=== PATIENT | male | born 1990 | race Caucasian/White ===

== ENCOUNTER 2018-02-27 09:53 | Outpatient (REF) | payer BC, SELFPAY | END 2018-02-27 10:13 | LOC: NCHCN 09:53 | PROVIDERS: PCP Internal Medicine; Visit Provider Family Medicine | DX: Z20.2 Contact with and (suspected) exposure to infections with a predominantly sexual mode of transmission (principal); Z53.8 Procedure and treatment not carried out for other reasons | CPT/HCPCS: 87491; 87591 ==

== ENCOUNTER 2018-03-02 12:23 | Outpatient (REF) | payer BC, SELFPAY ==
[2018-03-06 16:26] LABS: Chlamydia Result Negative; GC Result Negative; Specimen Description URINE
== END 2018-03-02 12:43 ==
LOC: NCHCN 12:23
PROVIDERS: PCP Internal Medicine; Visit Provider Family Medicine
DX: Z20.2 Contact with and (suspected) exposure to infections with a predominantly sexual mode of transmission (principal); Z11.3 Encounter for screening for infections with a predominantly sexual mode of transmission
CPT/HCPCS: 87491; 87591

== ENCOUNTER 2023-12-19 13:46 | Outpatient (REF) | payer OTHER, SELFPAY ==
--- OUTSIDE RECORDS SUMMARY | 2023-12-19 13:51 | XMS_ITS | Data Portability ---
Author Organization [facility] [place] [address] Care Team Providers Care Radio Electronics Officer Name Role Phone VINOD GRIMES Dentist ANNIE BENSON Fire Crew Specialist Assessment Encounter Date Assessment Date Assessment LastModified by Organization Details LastModified Time 07/08/2023 07/08/2023 32 y/o male here to re-establish care [email or web address] Not available 07/08/2023 07:43:18 Plan of Treatment Reminders Order Date Submit Date Provider Last Modified By Organization Details Last Modified Time Details Appointments None record ed. Lab None record ed. Referral None record ed. Procedures None record ed. Surgeries None record ed. Imaging None record ed. Medication Orders None record ed. Patient TargetsNo targets recorded. Patient Instructions Encounter Date Encounter Id Patient Instructions Last Modified By Organization Details Last Modified Time 07/08/2023 [id number] Keep going with all the things we talked about for blood pressure. Exercise Cut down on alcohol Cut out tobacco Lower salt diet Lots of fruits and veggies Check at home. Normal is less than 120/80 - we will see you back in a couple of months to check. Not available 07/08/2023 08:22:29 Reason for Referral None Reported. Problems Name Problem SNOMED Code Status Onset Date Resolution Date Notes Provider Name and Address Organization Details Recorded Time Sleep walking disorder 85425217 Completed 07/08/2023 LENNY turner [facility] 07:43:41 Current drinker 866522 Active LENNY turner [facility] 07:43:59 Problem Notes None recorded. Medical Equipment None Reported. Allergies No known drug allergies Medications Not known to be on any medication Vitals Date Recorded Body height Body mass index (BMI) Body weight Body temperature Oxygen saturation Oxygen saturation in Arterial blood by Pulse oximetry Heart rate Systolic blood pressure Diastolic blood pressure Provider Name and Address Organization Details Last Updated DateTime 173.99 cm 24.1 kg/m2 95203.6 5 g 98.1 [degF] 98 % 98 % 77 /min 130 mm[Hg] 90 mm[Hg] JONA SCHREIBER RN [facility] 08:08:08 Date Recorded Systolic blood pressure Diastolic blood pressure Provider Name and Address Organization Details Last Updated DateTime 07/08/2023 130 mm[Hg] 100 mm[Hg] LENNY JIN [facility] 07/08/2023 08:38:40 Social History Question Answer Notes LastModified by Organizat ion Details LastModified Time Tobacco Smoking Status Never Smoker JONA SCHREIBER RN [facility], [facility] 07/07/2023 07:33:12 How Much Tobacco Do You Chew? 1/day But Only On Occasion , Not Daily, Not Even Weekly. Information not available 07/07/2023 Do You Or Have You Ever Used E-cigarettes Or Vape? Never Used Electronic Cigarettes [email or web address] Information not available 07/07/2023 Would You Say That, In General, Your Health Is Very Good [email or web address] Information not available 07/07/2023 How Often Does Anyone, Including Family, Physically Hurt You? Never [email or web address] Information not available 07/07/2023 How Often Does Anyone, Including Family, Insult Or Talk Down To You? Never [email or web address] Information no t available 07/07/2023 How Often Does Anyone, Including Family, Threaten You With Harm? Never [email or web address] Information not available 07/07/2023 How Often Does Anyone, Including Family, Scream Or Curse At You? Never Information not available 07/07/2023 Within The Past 12 Months, You Worried That Your Food Would Run Out Before You Got Money To Buy More. Never True [email or web address] Information n ot available 07/07/2023 Within The Past 12 Months, The Food You Bought Just Didn't Last And You Didn't Have Money To Get More. Never True [email or web address] Information n ot available 07/07/2023 How Hard Is It For You To Pay For The Very Basics Like Food, Housing, Medical Care, And Heating? Would You Say It Is: Not Hard At All Information not available 07/07/2023 In The Past 12 Months, Has Lack Of Reliable Transportation Kept You From Medical Appointments, Meetings, Work Or From Getting Things Needed For Daily Living? No [email or web address] Information not available 07/07/2023 What Is Your Housing Situation Today? I Have Housing. [email or web address] Information not available 07/07/2023 How Often In The Past Year Have You Used Marijuana (including Smoking, Vaping, Dabbing, Or Edibles)? Monthly Or Less [email or web address] Information not available 07/07/2023 How Often In The Past Year Have You Used Prescription Medications That Were Not Prescribed To You? Never [email or web address] Information n ot available 07/07/2023 How Often In The Past Year Have You Taken Your Own Prescription Medication More Than The Way It Was Prescribed Or For Different Reasons Than Its Intended Purpose? Never Information no t available 07/07/2023 How Often In The Past Year Have You Used Other Drugs (for Example, Heroin, Cocaine, Meth, Salvia, Inhalants)? Never [email or web address] Information not available 07/07/2023 Have You Ever Used IV Drugs? No [email or web address] Information not available 07/07/2023 Date Of Most Recent SBINS 07/08/2023 [email or web address] Information not available 07/07/2023 What Was The Date Of Your Most Recent Tobacco Screening? 07/08/2023 [email or web address] Information not available 07/07/2023 Do You Or Have You Ever Used Smokeless Tobacco? Currently Chews Tobacco Information not available 07/07/2023 Has Tobacco Cessation Counseling Been Provided? Yes [email or web address] Information not available 07/07/2023 On What Date Was Tobacco Cessation Counseling Provided? 07/08/2023 [email or web address] Information not available 07/07/2023 Do You Or Have You Ever Used Any Other Forms Of Tobacco Or Nicotine? Yes [email or web address] Information not available 07/07/2023 How Many Years Have You Used Smokeless Tobacco? 10 [email or web address] Information n ot available 07/08/2023 Sex: Male Functional Status None recorded. Mental Status None recorded. Family History Nothing Reported Notes:Mother - HLD, HTN. Fat her - HTN. MGM - Colon CA. GFs of CVAs. PGM - Alcoholism Medical History No medical history recorded. Immunizations Vaccine Type Date Status Provider Name and Address Organization Details Recorded Time SARS-COV-2 (COVID-19) vaccine, UNSPECIFIED 07/07/2020 completed UNIQUE AMBRIZ, [facility] 07/07/2023 07:51:51 Tdap 02/17/2018 completed UNIQUE AMBRIZ, [facility] 07/07/2023 07:52:13 Td(adult) unspecified formulation 11/03/2006 completed UNIQUE AMBRIZ, [facility] 07/07/2023 07:52:30 Past Encounters Encounter ID Performer Location Encounter Start Date Encounter Closed Date Diagnosis/Indication Diagnosis SNOMED-CT Code Diagnosis ICD10 Code [id number] [address] [address] 07/08/2023 07:48:57 07/08/2023 08:34:36 Elevated blood-pressure reading without diagnosis of hypertension 009134513 R03.0 Adult [facility] th examination 748562461 Z00.00 Health Concerns Section Related Observation LastModified by Organization Detai ls LastModified Time None Recorded Concern Status LastModified by Organization Details LastModified Time None Recorded Advance Directives Directive None Recorded Payers Encounter Date Sequence Insurance Name Policy Number Policy [place] Covered Member ID [place] Member ID Guarantor Name 07/08/2023 1 [employer] AT [employer]ian [place] [id number] Mian Ty Notes Date Note Type Note Provider Name and Address Organization Details Recorded Time 07/08/2023 text/html HPI Notes: Mian is here to re-establish care. Last seen in this office 2017. Concerns today: Elevated blood pressure - went to dentist and BP was high 135/97. Has made some changes since then. He does have a home cuff - is usually 130/90 consistently. He did have some stress related to work. He is drinking less, cut out chewing tobacco, and cannabis, ETOH use 4x weekly, 3-4 drinks, would have a beer or whiskey at night most days, more on weekends. Tobacco - chews very occasionally, has now cut out. Occasional cannabis use No intentional exercise. Diet - he thinks pretty good. Eats out once a week. Cutting down on meat. 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 No other concerns today. ROS: No chest pain, palpitations, ankle swelling, urinary or bowel concerns, skin concerns. LENNY turner, [place] - [facility], [facility]. 07/08/2023 08:42:58
[2023-12-21 13:06] LABS: Container Type 50 mL Conical; Double Forms 4.5 %; Germ Cells/mL 0.43 x10(6) (<4.00); Head Shape Abnormal 21.5 %; Head Size Abnormal 0.5 %; Midpiece Defect 15.5 %; Motile/Ejaculate 34.8 x10(6) (>=9.0); Motile/mL 13.9 x10(6) (>=6.0); Motility 48 % (>=40); Semen Volume 2.5 mL (>=1.5); Sperm/mL 28.9 x10(6) (>=15.0); Study Type Semen
== END 2023-12-19 13:47 | disposition home or self-care (01) ==
LOC: NCHCN 13:46
PROVIDERS: Visit Provider Family Medicine
DX: Z30.8 Encounter for other contraceptive management (principal)
CPT/HCPCS: 89240; 89310

== ENCOUNTER 2024-02-02 03:11 | Outpatient (CLI) | payer OTHER, SELFPAY ==
[2024-02-03 09:36] LABS: Syphilis Serology (RPR) Negative (Negative)
[2024-02-03 10:07] LABS: Hepatitis B Surface Ag Negative (Negative)
[2024-02-03 10:35] LABS: Hepatitis C Ab w Rflx HCV PCR Negative (Negative)
[2024-02-03 10:39] LABS: HIV-1/2 Ag & Ab Screen Negative (Negative)
[2024-02-03 12:40] LABS: Chlamydia Result Negative (Negative); GC Result Negative (Negative)
== END 2024-02-02 03:12 | disposition home or self-care (01) ==
LOC: LBO 03:11
PROVIDERS: Visit Provider Nurse Practitioner Family
DX: Z11.59 Encounter for screening for other viral diseases (principal); Z11.4 Encounter for screening for human immunodeficiency virus [HIV]; Z11.3 Encounter for screening for infections with a predominantly sexual mode of transmission
CPT/HCPCS: 36415; 86803; 87340; 87389; 87491; 87591; 86592

== ENCOUNTER 2024-12-21 13:53 | Outpatient (REF) | payer OTHER, SELFPAY ==
[2024-12-21 21:06] LABS: HCT 44.9 % (40.0-50.0); HGB 15.6 g/dL (13.5-17.5); MCH 33.8 pg (27.0-33.0); MCHC 34.7 % (32.0-36.0); MCV 97 fL (80-95); MPV 8.9 fL (8.0-11.0); Platelet Count 249 10^3/uL (130-400); RBC 4.62 10^6/uL (4.36-5.78); RDW 11.6 % (11.8-14.1); RDW-SD 41.8 fL; WBC 5.53 10^3/uL (4.4-10.8)
[2024-12-21 21:35] LABS: ALT 79 U/L (16-63); AST 48 U/L (15-37); Albumin 4.4 g/dL (3.4-5.0); Alkaline Phosphatase 82 U/L (46-116); Anion Gap 12.7 mmol/L (3-11); BUN 7 mg/dL (7-18); Bilirubin, Total 0.7 mg/dL (0.2-1.0); CO2 27.3 mmol/L (21.0-32.0); Calcium 9.3 mg/dL (8.5-10.1); Chloride 100 mmol/L (98-107); Estimated GFR 120.59 (mL/min/1.73m2); Glucose 112 mg/dL (74-106); Potassium 3.7 mmol/L (3.5-5.1); Sodium 140 mmol/L (136-145); TSH (W/Ref FT4) 2.10 uIU/mL (0.36-3.74); Total Protein 7.5 g/dL (6.4-8.2)
[2024-12-23 12:54] LABS: HIV-1/2 Ag & Ab Screen Negative (Negative)
[2024-12-24 09:02] LABS: Syphilis Serology (RPR) Negative (Negative)
[2024-12-24 09:39] LABS: Hepatitis C Ab w Rflx HCV PCR Negative (Negative)
[2024-12-24 09:53] LABS: Hep B Core Antibody Negative (Negative)
[2024-12-24 12:42] LABS: Chlamydia Result Negative (Negative); GC Result Negative (Negative)
== END 2024-12-21 13:54 | disposition home or self-care (01) ==
LOC: NCHCN 13:53
PROVIDERS: Nurse Practitioner Family; Visit Provider Physician Assistant
DX: Z00.00 Encounter for general adult medical examination without abnormal findings (principal); Z13.6 Encounter for screening for cardiovascular disorders; Z13.228 Encounter for screening for other metabolic disorders; Z13.29 Encounter for screening for other suspected endocrine disorder
CPT/HCPCS: 80053; 85027; 86704; 86803; 87340; 87389; 87491; 87591; 84443; 86592